=== PATIENT | female | born 1985 | race Caucasian/White ===

== ENCOUNTER 2017-03-08 23:58 | Day surgery (SDC) | payer OTHER ==
[2017-03-09 00:39] VITALS: BMI 25.2
[2017-03-09] MEDS ORDERED: Cyclobenzaprine 10 MG TAB PO SCH (01:00)
--- NOTE | 2017-03-09 01:10 | PDOC.LDHP ---
Labor and Delivery H&P Chief complaint: contractions HPI: 31 y/o G1 at 36w3d, patient of Dr. Pabon, presents with contractions every 5-10 minutes with right sided back pain since 2100. Contractions come and go and are sometimes painful. Back pain from ribs to buttocks on left, constant, and radiating around the side. Worse with movement and change in position. Better when sitting up. Has not tried taking anything for the pain. Denies any dysuria, frequency, or urgency ROS neg for HEENT, CV, pulm, GI, , neuro, psych, skin, musculoskeletal, or constitutional symptoms other than mentioned above. OB History Details: first Current complications: none Past Medical History: Asthma Seasonal allergies Infertility (conceived on clomid) Hx kidney infection Current medications: pre-ron vitamins Previous surgical history: none Allergies/Adverse Reactions: Allergies Allergy/AdvReac Type Severity Reaction Status Date / Time ibuprofen Allergy Severe Severe Verified 03/09/17 00:30 Hives Social history: none - Physical Exam Vital signs reviewed and normal: yes General: NAD, resting Lungs: nonlabored breathing Abdomen: gravid Extremeties: no edema (back pain reproducible with palpation of lumbar muscles on left. No CVA tenderness) FHT: category 1 (140s, mod variability, + accels, no decels) [place] contractions every: 3-9 mins - Vaginal Exam cm dilated: 0 Effacement: 50% Station: -3 - Assessment 31 y/o G1 at 36w3d with no e/o active labor and musculoskeletal back pain. status reassuring with reactive NST. - Plan -: Given Flexeril for back pain. D/c home with precautions. Advised to keep follow up appointment and return with worsening symptoms.
[2017-03-09] MEDS ORDERED: FLU VACC QS2017-18 36 mo. & older 0.5 ML SYRINGE IM ONE (09:00)
== END 2017-03-09 01:22 | disposition home or self-care (01) ==
LOC: L&D/OP 23:58
PROVIDERS: ATTEND Obstetrics & Gynecology
DX: O47.03 False labor before 37 completed weeks of gestation, third trimester (principal); O99.52 Diseases of the respiratory system complicating childbirth; N97.9 Female infertility, unspecified; Z3A.36 36 weeks gestation of pregnancy; Z79.899 Other long term (current) drug therapy; Z88.6 Allergy status to analgesic agent

== ENCOUNTER 2017-04-11 18:50 | Inpatient (IN) | payer OTHER ==
[~2017-04-11 18:50] MED LIST: Bupivacaine 0.25% HCL 30 ML VIAL ONE
[2017-04-11] MEDS ORDERED: Diphenoxylate HCl/Atropine Tablet PO PRN (19:33)
[2017-04-11] MEDS ORDERED: Ondansetron HCl/PF 4 MG/2 ML Vial IVP PRN ×2 (19:33→22:32)
[2017-04-11] MEDS ORDERED: Lidocaine 1% (PF) 30 ML VIAL SC PRN (19:33)
[2017-04-11] MEDS ORDERED: Carboprost 250 MCG/ML AMP IM PRN (19:33)
[2017-04-11] MEDS ORDERED: LR / Pitocin 40 units/1000 ml 1,000 ML IV PRN (19:33)
[2017-04-11] MEDS ORDERED: Methylergonovine 0.2 MG/ML VIAL IM PRN (19:33)
[2017-04-11] MEDS ORDERED: Misoprostol 200 MCG TAB PR PRN (19:33)
[2017-04-11] MEDS ORDERED: Lactated Ringer's 1,000 ML IV SCH (19:45)
[2017-04-11] MEDS ORDERED: Penicillin G Potassium 5 MILL.UNITS in Sodium Chloride 0.9% 100 ML IVPB SCH (19:45)
[2017-04-11 19:47] LABS: Mean Corpuscular HGB CONC 33.5 g/dL (32.0-36.0); Mean Corpuscular Hemoglobin 31.3 pg (27.0-31.0); Mean Corpuscular Volume 93.5 fl (81.0-99.0); Mean Platelet Volume 7.7 fL (7.4-10.4); Platelet Count 300 thou/uL (130-400); RBC Distribution Width 12.7 % (11.5-14.5); Red Blood Cell (RBC) Count 4.15 mill/uL (4.20-5.40); White Blood Cell (WBC) Count 15.5 thou/uL (4.8-10.8)
[2017-04-11] MEDS ORDERED: Fentanyl 4 mcg/Marc 0.1% Cadd 100 ML ONE (19:47)
[2017-04-11] MEDS: Fentanyl 4mcg/Marcaine 0.1% Cassette 100 ML EPIDURAL SCH (20:17)
[2017-04-11] MEDS: Lactated Ringer's 1,000 ML IV SCH ×2 (20:17→22:08)
[2017-04-11 20:21] LABS: HBSAg Index 0.17 S/CO (0-0.99); Hep B Surf Ag Non-Reactive S/CO (NonReactive); Syphilis Antibody Nonreactive (Nonreactive); Syphilis Antibody Index 0.06 S/CO (<1.00 Non-Reactive)
[2017-04-11 20:46] VITALS: BMI 25.8
[2017-04-11] MEDS ORDERED: Penicillin G 2.5 MILL.units 2.5 MILL.UNITS in Premix Bag 1 BAG IVPB SCH (21:00)
[2017-04-11] MEDS ORDERED: ePHEDrine/0.9% NaCl/PF SYRINGE 50 mg/10 ml SLOW IVP PRN (22:32)
[2017-04-11] MEDS ORDERED: diphenhydrAMINE 50 MG/ML VIAL IVP PRN (22:32)
[2017-04-11] MEDS ORDERED: Promethazine HCl 25 MG/ML VIAL IM PRN (22:32)
[2017-04-11] MEDS ORDERED: Naloxone HCl 0.4 mg/ml Vial IVP PRN ×2 (22:32)
[2017-04-11] MEDS ORDERED: Eucerin (Mineral Oil/Petrolatum,White) 30 gm Jar TOP PRN (22:32)
[2017-04-11] MEDS ORDERED: Lactated Ringer's 500 ML IV PRN (22:32)
[2017-04-11] MEDS ORDERED: Acetaminophen 325 MG TAB PO PRN (22:32)
[2017-04-11] MEDS ORDERED: Communication Order-Pharmacy FS SCH (22:45)
[2017-04-12] MEDS: Fentanyl 4mcg/Marcaine 0.1% Cassette 100 ML EPIDURAL SCH (00:19)
[2017-04-12] MEDS ORDERED: Milk Of Magnesia 30 ML UDCUP PO PRN (01:29)
[2017-04-12] MEDS ORDERED: Methylergonovine 0.2 MG/ML VIAL IM PRN (01:29)
[2017-04-12] MEDS ORDERED: Acetaminophen/Codeine 30-300mg Tablet PO PRN ×2 (01:29)
[2017-04-12] MEDS ORDERED: Adacel (T-DAP) 0.5 ML VIAL IM ONE (01:29)
[2017-04-12] MEDS ORDERED: Bisacodyl 10 MG SUPP PR PRN (01:29)
[2017-04-12] MEDS ORDERED: LR / Pitocin 40 units/1000 ml 1,000 ML IV SCH (01:30)
[2017-04-12] MEDS ORDERED: Misoprostol 200 MCG TAB VAG SCH (01:30)
[2017-04-12] MEDS ORDERED: Acetaminophen 325 MG TAB PO PRN (01:32)
[2017-04-12] MEDS: Ferrous Sulfate 325 MG TAB PO SCH ×2 (09:07→18:31)
[2017-04-12] MEDS: Docusate Calcium (SURFAK) 240 MG CAP PO SCH ×2 (09:09→22:04)
[2017-04-13 08:00] VITALS: BP 118/68; TEMP 98.2
--- NOTE | 2017-04-13 08:23 | PDOC.PP ---
Post Progress Note Post Day #: 1 Subjective: no concerns, baby feeding well, normal lochia PO intake tolerated: yes Flatus: yes Ambulation: yes Vital Signs (12 hours) Temp Pulse Resp BP BP 04/13/17 07:58 98.2 F 77 18 118/68 04/13/17 07:45 98.2 F 77 18 04/13/17 04:10 97.7 F 65 18 122/57 L 04/12/17 22:10 98.5 F 77 18 123/60 Weight Weight 165 lb - Physical Examination General: NAD Respiratory: non-labored breathing Abdominal: no distention Fundus firm & at: below umb Extremities: negative homans (B) Skin: no rash Neurological: no gross focal deficits Psychiatric: normal affect Result Diagrams: 04/11/17 19:25 Additional Labs: Post Labs Blood Type A POSITIVE 04/11/17 19:25 Hep Bs Antigen Non-Reactive S/CO (NonReactive) 04/11/17 19:25 (1) Vaginal delivery Code(s): O80 - ENCOUNTER FOR FULL-TERM UNCOMPLICATED DELIVERY Status: Acute (2) Normal Code(s): Z34.90 - ENCNTR FOR SUPRVSN OF NORMAL , UNSP, UNSP TRIMESTER Status: Acute - Assessment/Plan PPD1, doing well, poss DC today vs tomorrow. No concerns.
[2017-04-13] MEDS: Ferrous Sulfate 325 MG TAB PO SCH (08:56)
[2017-04-13] MEDS: Docusate Calcium (SURFAK) 240 MG CAP PO SCH (08:56)
--- NOTE | 2017-04-14 12:45 | DN ---
DATE OF DELIVERY: 04/12/2017 DELIVERY NOTE STAGE I: At the time of presentation, Ms. Palafox is a 1, para 0 female at 41 weeks 1 day, who presented in active labor at 4 cm dilation, 100% effaced , -1 station. She had an uncomplicated intrapartum course and proceeded to complete and pushing without difficulty. STAGE II: Uncomplicated delivery of a 3912 gram female infant, Apgars of 8 and 9, delivered at 0102 on 04/12/2017. Estimated blood loss from delivery was 200 mL. There was controlled delivery of the head over the perineum and uncomplicated delivery of shoulders and torso. The infant had spontaneous cry and was placed on maternal abdomen. Cord was clamped x2 and cut. Stage III. There was uncomplicated delivery of an intact placenta with a 3- vessel cord. There was repair of a first degree perineal laceration. Both mother and are stable in recovery. [facility]
--- NOTE | 2017-04-14 12:45 | HP ---
DATE OF SERVICE: 04/11/2017 CHIEF COMPLAINT: Contractions. HISTORY OF PRESENT ILLNESS: At the time of presentation, Ms. Palafox is a 31-year-old 1, para 0 female at 41 weeks 1 day, who presents with complaints of contractions since approximately 1545 ho urs. She denies any vaginal bleeding or leakage of fluid. She reports good movement. She den ies any fever or chills. She denies any cardiovascular, respiratory or gastrointestinal complaints. REVIEW OF SYSTEMS: Per HPI. HISTORY: Please see Labor and Delivery admission record included by reference. PHYSICAL EXAMINATION: VITAL SIGNS: All within normal limits. The patient is afebrile. GENERAL: Nontoxic appearing female in no acute distress. OBSTETRIC: heart tracing is 130, tocodynamometer shows contractions every 4-5 minutes. GENITOURINARY: Cervix was examined and found to be 4 cm dilated, 100% effaced, -1 station. HEENT: Normocephalic, atraumatic. LUNGS: Respirations are unlabored. ABDOMEN: Gravid and nontender. ASSESSMENT AND PLAN: 1. A 41 week 1 day intrauterine with category 1 tracing. 2. Active labor. The patient will be admitted for labor management.
== END 2017-04-13 12:55 | disposition home or self-care (01) | DRG 775 ==
LOC: L&D/OP 18:50 → L&D 19:14 → 3SW 04-12 04:10
PROVIDERS: ADMIT Obstetrics & Gynecology; ATTEND Obstetrics & Gynecology
PROC: 10E0XZZ Delivery of Products of Conception, External Approach (ICD-10-PCS; principal; 2017-04-12)
PROC: 0HQ9XZZ Repair Perineum Skin, External Approach (ICD-10-PCS; 2017-04-12)
DX: O70.0 First degree perineal laceration during delivery (principal); Z37.0 Single live birth; Z3A.41 41 weeks gestation of pregnancy
CPT/HCPCS: 51702; 85027; 86780; 87340; 90471; 90732; 99285; G0009; J2001; S0020

== ENCOUNTER 2017-09-14 11:22 | Emergency (ER) | payer OTHER ==
[2017-09-14] MEDS ORDERED: Ondansetron HCl/PF 4 MG/2 ML Vial ONE (11:52)
[2017-09-14 12:05] LABS: Hemoglobin 15.4 g/dL (12.0-16.0); Mean Corpuscular HGB CONC 34.3 g/dL (32.0-36.0); Mean Corpuscular Volume 90.4 fl (81.0-99.0); Mean Platelet Volume 8.2 fL (7.4-10.4); Platelet Count 301 thou/uL (130-400); RBC Distribution Width 10.4 % (11.5-14.5); Red Blood Cell (RBC) Count 4.96 mill/uL (4.20-5.40); White Blood Cell (WBC) Count 12.5 thou/uL (4.8-10.8)
[2017-09-14 12:14] LABS: Albumin 4.4 g/dL (3.5-5.0); Anion Gap 16 mmol/L (10-20); BUN (Urea Nitrogen) 16 mg/dL (7.0-18.7); Bilirubin, Total 0.8 mg/dL (0.2-1.2); Calc. Creatinine Clearance 0 mL/min (70-130); Calcium 9.3 mg/dL (7.8-10.44); Carbon Dioxide 23 mmol/L (22-29); Chloride 105 mmol/L (98-107); Estimated GFR-MDRD 79; Glucose 97 mg/dL (70-105); Potassium 4.2 mmol/L (3.5-5.1); Protein, Total 7.8 g/dL (6.0-8.3); Sodium 140 mmol/L (136-145)
[2017-09-14 12:15] LABS: ALT (SGPT) 16 U/L (8-55); AST (SGOT) 18 U/L (5-34); Alkaline Phosphatase 122 U/L (40-150); Globulin 3.4 g/dL (2.4-3.5); Lipase 30 U/L (8-78)
[2017-09-14 12:19] LABS: Band 3 % (5-11); Lymphocytes 5 % (21-51); MDiff Complete? YES; Monocytes 2 % (0-10); Neutrophil 90 % (42-75); PLT Morphology Comment Appears Adequate; RBC Morphology Normal
== END 2017-09-14 12:48 | disposition home or self-care (01) ==
LOC: SCSER 11:22
DX: E86.0 Dehydration (principal); R11.2 Nausea with vomiting, unspecified; R19.7 Diarrhea, unspecified
CPT/HCPCS: 80053; 83690; 85025; 96374; J2405